=== PATIENT | female | born 1985 | race African-American/Black ===

== ENCOUNTER 2016-10-25 06:39 | Inpatient (IN) | payer MEDICAID ==
[2016-10-24 11:47] LABS: ABSOLUTE EOSINOPHILS # (AUTO) 0.1 10^3/uL (0.0-0.6); ABSOLUTE LYMPHOCYTES (AUTO) 1.8 10^3/uL (0.5-4.7); ABSOLUTE MONOCYTES (AUTO) 0.6 10^3/uL (0.1-1.4); ABSOLUTE NEUT (AUTO) 4.9 10^3/uL (1.7-8.2); BASOPHILS % (AUTO) 0.3 % (0-2); EOSINOPHILS % (AUTO) 0.7 % (0-6); HEMATOCRIT 30.2 % (36.0-47.0); HEMOGLOBIN 10.3 g/dL (12.0-15.5); HGB HCT DIFFERENCE 0.7; LYMPHOCYTES % (AUTO) 24.7 % (13-45); MEAN CORPUSCULAR HEMOGLOBIN 31.4 pg (27.0-33.4); MEAN CORPUSCULAR HGB CONC 34.1 g/dL (32.0-36.0); MEAN CORPUSCULAR VOLUME 92 fl (80-97); MONOCYTES % (AUTO) 8.6 % (3-13); RED BLOOD COUNT 3.27 10^6/uL (3.72-5.28); RED CELL DISTRIBUTION WIDTH 13.7 % (11.5-14.0); SEGMENTED NEUTROPHILS % (AUTO) 65.7 % (42-78); WHITE BLOOD COUNT 7.4 10^3/uL (4.0-10.5)
[2016-10-24 11:49] LABS: APPEARANCE,URINE CLOUDY; BILIRUBIN,URINE NEGATIVE (NEGATIVE); GLUCOSE, URINE NEGATIVE (NEGATIVE); KETONES,URINE NEGATIVE (NEGATIVE); LEUKOCYTE ESTERASE,URINE LARGE (NEGATIVE); NITRITE,URINE NEGATIVE (NEGATIVE); PROTEIN,URINE NEGATIVE (NEGATIVE); URINE SPECIFIC GRAVITY 1.016
[2016-10-24 12:02] LABS: URINE BARBITURATES SCREEN NEGATIVE; URINE METHADONE SCREEN NEGATIVE; URINE OPIATES LOW NEGATIVE; URINE PHENCYCLIDINE SCREEN NEGATIVE
[~2016-10-25 06:39] MED LIST: CEFAZOLIN 2 GM/D5W RTU 2 GM/50 ML RTUPB IV PRN; LACTATED RINGERS 1000 ML IV PRN; LIDOCAINE 0.5% INJ-PF (5 MG/ML) 50 ML SDV SUBCUT PRN; RINGERS SOLUTION,LACTATED 1,000 ML IV PRN
[2016-10-25] MEDS ORDERED: MIDAZOLAM 2 MG/2 ML INJ ONE ×2 (08:44)
[2016-10-25] MEDS ORDERED: FENTANYL CITRATE INJ/PF 100 MCG/2 ML AMPUL ONE (08:45)
[2016-10-25] MEDS ORDERED: ONDANSETRON HCL INJ/PF 4 MG/2 ML SDV ONE (08:45)
[2016-10-25] MEDS ORDERED: EPHEDRINE SULFATE INJ 50 MG/1 ML AMPULE ONE (08:45)
[2016-10-25] MEDS ORDERED: OXYTOCIN 10 UNIT/ML VIAL ONE (08:45)
[2016-10-25] MEDS ORDERED: DIPHENHYDRAMINE HCL 50 MG/ML VIAL IV PRN (10:37)
[2016-10-25] MEDS ORDERED: MEPERIDINE HCL/PF INJ 25 MG/1 ML DISP.SYRIN IV PRN (10:37)
[2016-10-25] MEDS ORDERED: ONDANSETRON HCL INJ/PF 4 MG/2 ML SDV IV PRN (10:37)
[2016-10-25] MEDS ORDERED: FENTANYL CITRATE INJ/PF 100 MCG/2 ML AMPUL IV PRN ×3 (10:37)
--- NOTE | 2016-10-25 11:43 | Brief Operative Note ---
BRIEF OPERATIVE REPORT DATE OF SURGERY: 10/25/16 TIME OF SURGERY: 11:00 PREOPERATIVE DIAGNOSIS: H/o prior C/S, Undesired Fertility. POSTOPERATIVE DIAGNOSIS: SHAYLA - delivered SURGEON: INDERJIT CAN FINDINGS: viable female , Apgars 8/9, very thin uterine scar. Normal tubes/ovaries bilaterally, normal uterus. Bilateral club feet. COMPLICATIONS: None ESTIMATED BLOOD LOSS: 600ml TISSUE REMOVED OR ALTERED: placenta and cord not sent TECHNICAL PROCEDURE: Repeat Low transverse section, Bilateral Tubal Ligation.
[2016-10-25] MEDS ORDERED: ACETAMINOPHEN 325 MG TABLET PO PRN (11:45)
[2016-10-25] MEDS ORDERED: SIMETHICONE 80 MG TAB.CHEW PO PRN (11:45)
[2016-10-25] MEDS ORDERED: DIPH/PERTUSS(ACELL)/TETANUS VAC/PF 0.5 ML SYR (>=10YO) IM PRN (11:45)
[2016-10-25] MEDS ORDERED: OXYTOCIN/NORMAL SALINE 1,000 ML IV PRN (11:45)
[2016-10-25] MEDS ORDERED: ACETAMINOPHEN 100 ML IV PRN (11:45)
[2016-10-25] MEDS ORDERED: OXYCODONE-ACETAMINOPHEN 5-325 MG TABLET PO PRN (11:45)
[2016-10-25] MEDS ORDERED: PROMETHAZINE HCL INJ 25 MG/1 ML VIAL IV PRN (11:45)
[2016-10-25] MEDS ORDERED: MEASLES,MUMPS&RUBELLA VACC/PF 0.5 ML VIAL SUBCUT PRN (11:45)
[2016-10-25] MEDS ORDERED: HYDROMORPHONE HCL INJ/PF 2 MG/ML AMPULE IV PRN (11:45)
[2016-10-25] MEDS: KETOROLAC TROMETHAMINE INJ/PF 30 MG/1 ML SDV IV SCH ×2 (14:18→22:50)
[2016-10-25] MEDS: DOCUSATE SODIUM 100 MG CAPSULE PO SCH (18:06)
[2016-10-25] MEDS: OXYCODONE-ACETAMINOPHEN 5-325 MG TABLET PO PRN (18:13)
--- NOTE | 2016-10-26 04:22 | PDOC DELIVERY SUMMARY ---
Delivery Summary - Maternal Hx : V Hx Para: II Hx # Term Pregnancies: 2 Hx # Pregnancies: 0 Hx Total # of Abortions (Sponateous & Elective): 2 Number of Living Children: 2 HUDSON: 10/30/16 Gestational Age: 39 Risk Factors: Previous Ruptured Membranes: AROM Time of Rupture: 10:46 Fluids: Clear Fluid Description: NUCHAL CORD X 1 - Delivery Labor: Not In Labor Presentation: Vertex Heart Rate Monitoring: Done Pre-Operatively Uterine Contraction Monitoring: External Support Person Present: Yes Location: OR : Scheduled Placenta: Within Normal Limits Nuchal Cord: Yes Delivery of Placenta Date: 10/25/16 Delivery of Placenta Time: 10:48 - Medications Type of Anesthesia:: Spinal - Infant Assess and Care Baby 1 Female Delivery of Infant Date: 10/25/16 Delivery of Infant Time: 10:47 at 1 minute: 8 at 5 minutes: 9 Preprinted Number On Band: [id number] Skin to Skin: Yes Skin to Skin (Mins): 5 To Nursery At: 11:01 Mode of Transport: Bassinet Infant Delivery Weight: 3885 kg Infant Delivery Length: 19.5 in - Delivery Personnel Nursery RN: MELISSA Nursery RN: ZACH NÚÑEZ MD: INDERJIT CAN
--- NOTE | 2016-10-26 04:30 | Operative Report ---
Operative Report DATE OF SURGERY: 10/25/16 PREOPERATIVE DIAGNOSIS: H/o prior C/S, Undesired Fertility. POSTOPERATIVE DIAGNOSIS: SHAYLA - delivered OPERATION: Repeat Low transverse section, Bilateral Tubal Ligation. SURGEON: INDERJIT CAN ANESTHESIA: Spinal TISSUE REMOVED OR ALTERED: placenta and cord not sent COMPLICATIONS: None ESTIMATED BLOOD LOSS: 600ml INTRAOPERATIVE FINDINGS: viable female infant, Apgars 8/9, weigth 3885g, time of 1047, very thin uterine scar. Normal tubes/ovaries bilaterally, normal uterus. Bilateral club feet. Nuchal cord x 1, Filschie clips x 2 placed bilateral fallopian tubes PROCEDURE: Anesthesia: Spinal Anesthesia provider: [Collette MONTEIRO, Perry De Leon CRNA] Estimated blood loss: [600ml] Urine output: [200ml] IV fluids: [1700ml] Complications: [None] Specimens: [None] Indications: [31yo at 39+0ega with h/o prior section and undesired fertility presents for repeat elective low transverse section and bilateral tubal ligation. The permanence of tubal ligation was reviewed with the patient and she desires to proceed. The risks/benefits/ alternatives were reviewed and the patient desires to proceed with planned procedure. ] Procedure: The patient was taken to the operating room where spinal anesthesia was obtained and found to be adequate. She was then prepped and draped in the normal sterile fashion and placed in the dorsal supine position with a leftward tilt. A Pfannenstiel skin incision was then made and carried through to the underlying layers of the fascia with the scalpel. The fascia was incised in the midline and the incision extended laterally with the Ponce scissors. The superior aspect of the fascial incision was then grasped with Melanie clamps elevated and the underlying rectus muscles dissected off [bluntly]. Attention was then turned to the inferior aspect of the fascial incision which in a similar fashion was grasped, tented up with Miriam clamps, and the rectus muscles dissected off [bluntly]. The rectus muscles were then in the midline and the peritoneum at the amount identified and entered [bluntly]. The peritoneal incision was then extended superiorly and inferiorly with good visualization of the bladder. The bladder blade was inserted and the vesicouterine peritoneum identified grasped with Swedish pickups and entered sharply with the Metzenbaum scissors. This incision was then extended laterally with the Metzenbaum scissors and a bladder flap created digitally. The bladder blade was then reinserted and the lower uterine segment incised in a transverse fashion with the scalpel. The uterine incision was then extended bluntly. The bladder blade was removed and the infant's head was delivered from cephalic presentation atraumatically. The nose and mouth were suctioned and the cord doubly clamped and cut. And the was handed off to waiting pediatricians. The placenta was then delivered spontaneously and the uterus exteriorized and cleared of all clots and debris. The uterine incision was then repaired with 1- 0 Vicryl in a running locked fashion. A second layer of the same suture was used to obtain hemostasis via imbrication of the initial layer. The bladder flap was then repaired with 3-0 chromic in a running fashion. The right fallopian tube was identified and filschie clips times 2 placed. This procedure was repeated on the left fallopian tube thus completing the bilateral tubal ligation. The uterus was returned to the patient's abdomen and Interceed was placed overlying the uterine incision to prevent adhesions. The gutters were cleared of all clots and debris. All operative sites were noted to be hemostatic. The fascia was reapproximated with 0 Vicryl in a running fashion from each lateral edge to the midline. The skin was closed with 3-0 Monocryl in a running subcuticular fashion with overlying Dermabond for additional dressing as well as wound closure. The patient tolerated the procedure well. Sponge lap needle and instrument counts are correct times 2. 2 g of Ancef were given prior to skin incision. The patient was taken to the recovery area awake and in stable condition.
[2016-10-26] MEDS: IBUPROFEN 800 MG TABLET PO SCH ×4 (05:31→23:25)
[2016-10-26 07:12] LABS: HEMATOCRIT 29.7 % (36.0-47.0); HEMOGLOBIN 10.1 g/dL (12.0-15.5); HGB HCT DIFFERENCE 0.6; MEAN CORPUSCULAR HEMOGLOBIN 31.4 pg (27.0-33.4); MEAN CORPUSCULAR VOLUME 92 fl (80-97); RED BLOOD COUNT 3.22 10^6/uL (3.72-5.28); RED CELL DISTRIBUTION WIDTH 13.5 % (11.5-14.0); WHITE BLOOD COUNT 10.5 10^3/uL (4.0-10.5)
[2016-10-26] MEDS: OXYCODONE-ACETAMINOPHEN 5-325 MG TABLET PO PRN ×3 (08:12→21:50)
--- NOTE | 2016-10-26 09:14 | PDOC PROGRESS REPORT ---
Subjective-OB Subjective: Post Delivery Day: 1 31 year old. Denies any needs at this time, states lochia is stable, pain well controlled, voiding without difficulty, passing gas. Physical Exam (OB) Vital Signs: Temp Pulse Resp BP Pulse Ox 98.4 F 73 16 121/69 97 10/26/16 07:29 10/26/16 07:29 10/26/16 07:29 10/26/16 07:29 10/26/16 07:29 Intake & Output 10/25/16 10/26/16 10/27/16 06:59 06:59 06:59 Intake Total 3400 Output Total 2200 300 Balance 1200 -300 Weight 82.55 kg 82.55 kg - PIH/Pre-Eclampsia Clonus: Negative Headache: Absent Epigastric Pain: No Visual Changes: No - Dressing Removed: No Closure Type: Surgical Glue - Lochia Lochia Amount: Scant < 10 ml Lochia Color: Rubra/Red - Abdomen Description: Soft, Round Hernia Present: No Fundal Description: Firm Fundal Height: u/u - u/2 Objective-Diagnostic Laboratory: 10/26/16 06:40 10/26/16 06:40 WBC 10.5 RBC 3.22 L Hgb 10.1 L Hct 29.7 L MCV 92 MCH 31.4 MCHC 34.0 RDW 13.5 Plt Count 131 L Assessment and Plan(PN) - Assessment and Plan (1) Status post repeat low transverse section Is this a current diagnosis for this admission?: YesPlan: routine postop (2) Encounter for tubal ligation Is this a current diagnosis for this admission?: YesPlan: routine post op - Time Spent with Patient Time with patient: Less than 15 minutes Critical Time spent with patient: Less than 15 minutes Medications reviewed and adjusted accordingly: Yes - Disposition Anticipated Discharge: Home Within: within 24 hours
[2016-10-26] MEDS: DOCUSATE SODIUM 100 MG CAPSULE PO SCH ×2 (10:26→17:33)
[2016-10-26] MEDS: PRENATAL VITAMIN W-O CA NO5/FE FUMARATE/FA CAPSULE PO SCH (10:26)
[2016-10-27] MEDS: IBUPROFEN 800 MG TABLET PO SCH ×2 (05:11→12:01)
--- NOTE | 2016-10-27 08:43 | PDOC DISCHARGE SUMMARY ---
Final Diagnosis Discharge Date: 10/27/16 - Final Diagnosis (1) Status post repeat low transverse section Is this a current diagnosis for this admission?: Yes (2) Encounter for tubal ligation Is this a current diagnosis for this admission?: Yes Discharge Data - Discharge Medication Home Medications: [id number]/Iron Fumarate/FA/Dss [ 19 Tablet] 1 each PO BID 10/24/16 Docusate Sodium [Colace 100 mg Capsule] 100 mg PO BID #60 capsule 10/27/16 Ferrous Sulfate [Feosol] 325 mg PO BID #60 tablet 10/27/16 Ibuprofen [Motrin 800 mg Tablet] 800 mg PO Q6 #60 tablet 10/27/16 Oxycodone HCl/Acetaminophen [Percocet 5-325 mg Tablet] 2 tab PO Q4HP PRN #30 tablet 10/27/16 Gestational Age: 39 Reason(s) for Admission: Ceasarean Section-Repeat, Tubal Ligation Procedures: NST Intrapartum Procedure(s): : Low Cervical, Transverse, Tubal Ligation - [place] Data Baby 1 Female at 1 minute: 8 at 5 minutes: 9 Weight: 3885 kg Home with Mother: Yes Complications: No - Diagnosis Test Laboratory: Temp Pulse Resp BP Pulse Ox 98.1 F 73 16 98/69 L 98 10/27/16 04:00 10/27/16 04:00 10/27/16 04:00 10/27/16 04:00 10/27/16 04:00 10/24/16 10/24/16 10/26/16 10:42 10:42 06:40 RBC 3.27 L 3.22 L Hgb 10.3 L 10.1 L Hct 30.2 L 29.7 L Urine Opiates Screen NEGATIVE - Discharge information/Instructions Discharge Activity: Activity As Tolerated, No Driving, No Lifting Over 10 Pounds , Pelvic Rest, No tub bath Discharge Diet: Regular Disposition: HOME, SELF-CARE Follow up with: [facility] in: 1, Weeks
[2016-10-27] MEDS: PRENATAL VITAMIN W-O CA NO5/FE FUMARATE/FA CAPSULE PO SCH (11:00)
[2016-10-27] MEDS: DOCUSATE SODIUM 100 MG CAPSULE PO SCH (11:00)
[2016-10-27 11:35] VITALS: BP 98/69
== END 2016-10-27 12:10 | disposition home or self-care (01) | DRG 766 ==
LOC: 2N 06:39
PROVIDERS: ADMIT Student in an Organized Health Care Education/Training Program; ATTEND Student in an Organized Health Care Education/Training Program
PROC: 0UL70CZ Occlusion of Bilateral Fallopian Tubes with Extraluminal Device, Open Approach (ICD-10-PCS; 2016-10-25)
PROC: 10D00Z1 Extraction of Products of Conception, Low, Open Approach (ICD-10-PCS; principal; 2016-10-25 09:30)
DX: O34.211 Maternal care for low transverse scar from previous cesarean delivery (principal); O69.81X0 Labor and delivery complicated by cord around neck, without compression, not applicable or unspecified; O99.334 Smoking (tobacco) complicating childbirth; F17.210 Nicotine dependence, cigarettes, uncomplicated; Z3A.39 39 weeks gestation of pregnancy; Z37.0 Single live birth; Z30.2 Encounter for sterilization
CPT/HCPCS: 1961; 36415; 59025; 80307; 81001; 85025; 85027; 86850; 86900; 86901; 94799; C1765; J1170; J1885; J2250; J2405; J2590; J3010; J3490

== ENCOUNTER 2019-03-06 16:19 | Emergency (ER) | payer SELFPAY ==
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
[2019-03-06 17:27] LABS: APPEARANCE,URINE SLIGHTLY-CLOUDY; BILIRUBIN,URINE NEGATIVE (NEGATIVE); COLOR,URINE YELLOW; GLUCOSE, URINE 50 mg/dL (NEGATIVE); KETONES,URINE TRACE mg/dL (NEGATIVE); PROTEIN,URINE 30 mg/dL (NEGATIVE); URINE SPECIFIC GRAVITY 1.023; UROBILINOGEN,URINE NEGATIVE mg/dL (<2.0)
[2019-03-06 17:39] LABS: URINE AMPHETAMINES SCREEN NEGATIVE; URINE BARBITURATES SCREEN NEGATIVE; URINE BENZODIAZEPINES SCREEN NEGATIVE; URINE COCAINE SCREEN NEGATIVE; URINE MARIJUANA (THC) SCREEN UNCONFIRMED POSITIVE; URINE METHADONE SCREEN NEGATIVE; URINE PHENCYCLIDINE SCREEN NEGATIVE
--- NOTE | 2019-03-06 17:41 | RADIOLOGY REPORT (SQ) ---
EXAM DESCRIPTION: FACIAL BONES COMPLETED DATE/TIME: 03/06/2019 5:04 pm REASON FOR STUDY: Pain swelling to the facial bones COMPARISON: None. NUMBER OF VIEWS: Four view. TECHNIQUE: Images of the facial bones acquired. LIMITATIONS: None. FINDINGS: ORBITS: No fracture. No foreign body. SINUSES: No mucosal thickening. No air fluid levels. FACIAL BONES: No fracture. OTHER: No other significant finding. IMPRESSION: NO FOREIGN BODY OR FRACTURE OF THE FACIAL BONES. TECHNICAL DOCUMENTATION: JOB ID: [id number] [employer]- All Rights Reserved Reading location - IP/workstation name: [email or web address]
[2019-03-06] MEDS ORDERED: LIDOCAINE 1% INJ-PF (10 MG/ML) 30 ML SDV INJ ONE (19:10)
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
[2019-03-06] MEDS ORDERED: HYDROCODONE/ACETAMINOPHEN 5-325 MG (6 TAB/ER DISP) PO PRN (22:03)
[2019-03-06 22:14] VITALS: BP 138/64
== END 2019-03-06 22:11 | disposition home or self-care (01) ==
LOC: ER 16:19
PROC: 0CQ0XZZ Repair Upper Lip, External Approach (ICD-10-PCS; principal; 2019-03-06)
DX: S01.511A Laceration without foreign body of lip, initial encounter (principal); S09.93XA Unspecified injury of face, initial encounter; R22.0 Localized swelling, mass and lump, head; Y09 Assault by unspecified means; F17.210 Nicotine dependence, cigarettes, uncomplicated; F12.90 Cannabis use, unspecified, uncomplicated; F17.200 Nicotine dependence, unspecified, uncomplicated
CPT/HCPCS: 99284; 81025; 81001; 80307; 70150; 70486; 12011; J3490

== ENCOUNTER 2019-03-11 08:14 | Emergency (ER) | payer SELFPAY ==
[2019-03-11 08:21] VITALS: BP 113/74
--- NOTE | 2019-03-11 08:34 | ER Document Report ---
HPI - HPI Time Seen by Provider: 03/11/19 08:17 Notes: Patient is a 33-year-old female presenting to the emergency department with request for suture removal. Patient has sutures placed to her upper lip 5 days ago here in the emergency department. I placed the sutures. Patient reports healing well. Denies any fevers or drainage from the area. - REPRODUCTIVE Reproductive: DENIES: : Past Medical History - General Information source: Patient - Social History Smoking Status: Never Smoker Family History: Reviewed & Not Pertinent - Medical History Medical History: Negative - Past Medical History Cardiac Medical History: Denies: Hx Hypertension, Hx Pulmonary Embolism, Hx Heart Murmur Pulmonary Medical History: Denies: Hx Asthma, Hx Sleep Apnea, Hx Tuberculosis Neurological Medical History: Denies: Hx Cerebrovascular Accident, Hx Seizures Endocrine Medical History: Denies: Hx Hyperthyroidism, Hx Hypothyroidism Renal/ Medical History: Denies: Hx Kidney Stones, Hx Ovarian Cysts, Hx Pelvic Inflammatory Disease Malignancy Medical History: Denies: Hx Breast Cancer, Hx Cervical Cancer, Hx Ovarian Cancer GI Medical History: Denies: Hx Gastroesophageal Reflux Disease, Hx Hiatal Hernia, Hx Ulcer Musculoskeletal Medical History: Denies Hx Fibromyalgia Psychiatric Medical History: Denies: Hx Bipolar Disorder, Hx Depression, Hx Post Traumatic Stress Disorder, Hx Schizophrenia Traumatic Medical History: Denies: Hx Fractures Infectious Medical History: Denies: Hx HIV Surgical Hx: Negative - Immunizations Immunizations up to date: Yes Vertical Provider Document - CONSTITUTIONAL Notes: PHYSICAL EXAMINATION: GENERAL: Well-appearing, well-nourished and in no acute distress. HEAD: Atraumatic, normocephalic. EYES: Pupils equal round extraocular movements intact, conjunctiva are normal. ENT: Nares patent NECK: Normal range of motion LUNGS: No respiratory distress Musculoskeletal: Normal range of motion NEUROLOGICAL: Normal speech, normal gait. PSYCH: Normal mood, normal affect. SKIN: Healing laceration noted to upper lip, [address], no surrounding erythema no drainage. - INFECTION CONTROL TRAVEL OUTSIDE OF THE [place] IN LAST 30 DAYS: No Course - Re-evaluation Re-evalutation: Laceration appears to have healed well, sutures removed. Patient tolerated well. 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 The patient's emergency department workup and current diagnosis were explained to the patient and or family. Follow-up instructions were provided. Medicat ions if prescribed were discussed. Instructions for when to return to the emergency department including specific worrisome symptoms were discussed with the patient and/or family. - Vital Signs Vital signs: Temp Pulse Resp BP Pulse Ox 98.7 F 97 18 113/74 97 03/11/19 08:20 03/11/19 08:20 03/11/19 08:20 03/11/19 08:20 03/11/19 08:20 Discharge - Discharge Clinical Impression: Visit for suture removal Condition: Stable Disposition: HOME, SELF-CARE Additional Instructions: Continue to apply triple antibiotic ointment to the area once daily. Keep all follow-up appointments. Prescriptions: Hydrocodone/Acetaminophen [Victoria 5-325 mg Tablet] 1 tab PO Q4H #10 tablet
== END 2019-03-11 08:35 | disposition home or self-care (01) ==
LOC: ER 08:14
DX: S01.511D Laceration without foreign body of lip, subsequent encounter (principal); X58.XXXD Exposure to other specified factors, subsequent encounter

== ENCOUNTER 2020-01-23 22:03 | Emergency (ER) | payer SELFPAY ==
[2020-01-23] MEDS ORDERED: EPINEPHRINE INJ/PF 1 MG/1 ML AMPULE IM ONE (22:15)
[2020-01-23] MEDS ORDERED: FAMOTIDINE INJ/PF 20 MG/2 ML SDV IV ONE (22:15)
--- NOTE | 2020-01-23 22:16 | ER Document Report ---
ED Allergic Reaction - General Chief Complaint: Allergic Reaction Stated Complaint: ALLERGIC REACTION Time Seen by Provider: 01/23/20 22:09 Primary Care Provider: [facility] [Provider Group] - Follow up in 3-5 days [facility] [Provider Group] - Follow up in 3-5 days Notes: Patient is a 34-year-old female who presents emergency department with an allergic reaction. Patient states that she was at a restaurant and started to eat some bermudez cheese fries. Says she was also drinking a marlyn. Denies any other foods. She then went to the bathroom and started to feel itchy. Denies being around any insects. Patient was brought in via EMS and was given 50 mg of Benadryl IV and 125 mg of Solu-Medrol IV. EMS states that her lip involvement is getting better, but her eyes are starting to get "puffy." Patient denies any history of an allergic reaction in the past. Denies any shortness of breath or difficulty breathing. TRAVEL OUTSIDE OF THE [place] IN LAST 30 DAYS: No - Related Data Allergies/Adverse Reactions: No Known Allergies Allergy (Verified 03/11/19 08:27) Past Medical History - Social History Smoking Status: Current Every Day Smoker Frequency of alcohol use: Social Drug Abuse: Marijuana Family History: Reviewed & Not Pertinent - Past Medical History Cardiac Medical History: Denies: Hx Hypertension, Hx Pulmonary Embolism, Hx Heart Murmur Pulmonary Medical History: Denies: Hx Asthma, Hx Sleep Apnea, Hx Tuberculosis Neurological Medical History: Denies: Hx Cerebrovascular Accident, Hx Seizures Endocrine Medical History: Denies: Hx Hyperthyroidism, Hx Hypothyroidism Renal/ Medical History: Denies: Hx Kidney Stones, Hx Ovarian Cysts, Hx Pelvic Inflammatory Disease Malignancy Medical History: Denies: Hx Breast Cancer, Hx Cervical Cancer, Hx Ovarian Cancer GI Medical History: Denies: Hx Gastroesophageal Reflux Disease, Hx Hiatal Hernia, Hx Ulcer Musculoskeletal Medical History: Denies Hx Fibromyalgia Psychiatric Medical History: Denies: Hx Bipolar Disorder, Hx Depression, Hx Post Traumatic Stress Disorder, Hx Schizophrenia Traumatic Medical History: Denies: Hx Fractures Infectious Medical History: Denies: Hx HIV Past Surgical History: Reports: Hx Section - Immunizations Immunizations up to date: Yes Review of Systems - Review of Systems Notes: REVIEW OF SYSTEMS: CONSTITUTIONAL : Denies recent illness. Denies recent unintentional weight loss. Denies fever, chills, or sweats. EENT: Denies ear, or throat, discharge, or symptoms. Denies nasal or sinus congestion. See HPI. CARDIOVASCULAR: Denies chest pain. RESPIRATORY: Denies shortness of breath, cough, congestion, difficulty breathing, or wheezing. GASTROINTESTINAL: Denies nausea, vomiting, and diarrhea. Denies abdominal pain. Denies constipation. GENITOURINARY: Denies difficulty urinating, burning, blood in urine, urgency or frequency. MUSCULOSKELETAL: Denies neck and back pain. Denies joint pain or swelling. SKIN: See HPI. HEMATOLOGIC : Denies easy bruising or bleeding. LYMPHATIC: Denies swollen, painful, enlarged glands. NEUROLOGICAL: Denies no numbness or tingling denies weakness. Denies headache. Denies altered mental status. Denies alteration in speech. PSYCHIATRIC: Denies stress, anxiety, alteration in sleep patterns, or depression. All other systems reviewed and negative. Physical Exam - Vital signs Vitals: Temp Resp Pulse Ox 98.3 F 22 H 99 01/23/20 22:04 01/23/20 22:04 01/23/20 22:04 - Notes Notes: PHYSICAL EXAMINATION: GENERAL: Appears well, healthy, well-nourished, no acute distress. HEAD: Normocephalic, atraumatic. EYES: PERRL, conjunctiva normal, all extraocular movements intact, sclera nonicteric ENT: Moist mucous membranes. Edema noted to upper and lower lips. NECK: Supple, no noticeable swelling, redness, rash. Normal range of motion. LUNGS: Equal breath sounds bilaterally and clear to auscultation. No wheezes rales or rhonchi. CARDIOVASCULAR: S1-S2, regular rate, regular rhythm. Radial pulses 2+, normal. ABDOMEN: Normoactive bowel sounds. Soft, nontender, no guarding, no rebound tenderness, and no masses palpated. EXTREMITIES: Normal strength and range of motion, no pitting or edema. No cyanosis. NEUROLOGICAL: Moves all extremities upon command. Strength 5/5 in all extremities. PSYCH: Normal mood, normal affect. SKIN: Warm, dry. Normal skin turgor. Small amount of erythema noted to body, consistent with hives. Course - Re-evaluation Re-evalutation: 01/23/20 22:18 Patient does have lip involvement, therefore will add epinephrine IM and Pepcid IV. Will reassess. 01/23/20 23:00 Reassessed patient and she states that she feels she is getting better. 01/23/20 23:30 Reassessed patient and I edema has decreased. Patient states that she feels her lip swelling has decreased. 01/24/20 00:30 I reassessed the patient and her lips are back to normal. She showed me a picture of her face prior to her allergic reaction and her lips are indeed back to normal size. No more edema noted to eyes. We will send the patient home with a prescription for an EpiPen. Will place her on Pepcid. Follow-up precautions were given. Verbal discharge instructions were given to the patient. They verbalized understanding. They are stable for discharge. - Vital Signs Vital signs: Temp Pulse Resp BP Pulse Ox 98.3 F 19 114/67 98 01/23/20 22:04 01/24/20 00:01 01/24/20 00:01 01/24/20 00:01 Discharge - Discharge Clinical Impression: Allergic reaction Qualifiers: Encounter type: initial encounter Qualified Code(s): T78.40XA - Allergy, unspecified, initial encounter Condition: Stable Disposition: HOME, SELF-CARE Additional Instructions: You were seen today in emergency department for an allergic reaction. You were given a dose of epinephrine to help with the swelling around her lips and your eyes. You are being prescribed epinephrine pen. Please make sure you take this around with you wherever you. If you use it, go to the emergency department right after giving it to yourself, or call 911. I recommend that you see an machine package sealer. Take Pepcid for the next few days. Avoid hot showers or hot liquids, as this may give you another reaction. Prescriptions: Epinephrine [Epipen] 0.3 mg IJ ASDIR PRN #2 auto.injct PRN Reason: Famotidine [Pepcid 20 mg Tablet] 20 mg PO BID #12 tablet Forms: Return to Work Referrals: [facility] [Provider Group] - Follow up in 3-5 days [facility] [Provider Group] - Follow up in 3-5 days
[2020-01-24 00:41] VITALS: BP 105/74
== END 2020-01-24 00:46 | disposition home or self-care (01) ==
LOC: ER 22:03
DX: T78.40XA Allergy, unspecified, initial encounter (principal); L53.9 Erythematous condition, unspecified; R22.0 Localized swelling, mass and lump, head; X58.XXXA Exposure to other specified factors, initial encounter; F17.200 Nicotine dependence, unspecified, uncomplicated; F12.10 Cannabis abuse, uncomplicated
CPT/HCPCS: 99284; 96372; 96374; J0171; S0028